=== PATIENT | female | born 1955 | race Caucasian/White ===

== ENCOUNTER → 2017-01-03 | Outpatient (CLI) | payer OTHER | LOC: FIMAGING 12:59 | PROVIDERS: ATTEND Physician Assistant | DX: Z12.31 Encounter for screening mammogram for malignant neoplasm of breast (principal); Z80.3 Family history of malignant neoplasm of breast | CPT/HCPCS: G0202 ==

== ENCOUNTER 2018-10-28 15:31 | Emergency (ER) | payer BC ==
[2018-10-28] MEDS ORDERED: NS 1,000 ML IV ONE (15:40)
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
[2018-10-28] MEDS ORDERED: MECLIZINE HCL 25 MG TAB PO ONE (15:42)
[2018-10-28 15:51] LABS: PLATELET COUNT 300 10^3/uL (150-400)
--- NOTE | 2018-10-28 15:54 | CPEKG ---
Test Reason : OPEN Blood Pressure : / mmHG Vent. Rate : 060 BPM Atrial Rate : 058 BPM P-R Int : 135 ms QRS Dur : 086 ms QT Int : 427 ms P-R-T Axes : 047 064 058 degrees QTc Int : 427 ms Sinus rhythm Confirmed by Arnulfo Medina ([id number]) on 10/28/2018 3:54:16 PM Referred By: ARNULFO MEDINA Confirmed By:Arnulfo Medina
[2018-10-28 18:10] VITALS: BP 138/77
== END 2018-10-28 18:10 | disposition home or self-care (01) ==
LOC: EDUNIT#
DX: R42 Dizziness and giddiness (principal); E86.9 Volume depletion, unspecified
CPT/HCPCS: 84484-ER; 96374; J1200